=== PATIENT | female | born 1980 | race Two or more races ===

== ENCOUNTER → 2021-04-22 | Emergency (ER) | payer OTHER ==
[~2021-04-22] VITALS: Ht 160 cm; Wt 136.1 kg
[~2021-04-22] MED LIST: ATORVASTATIN CA20 MG PO; CLONAZEPAM1 MG PO; LASIX20 MG PO; OMEPRAZOLE MAGN20 MG PO; SINGULAIR10 MG PO; ZESTRIL20 MG PO; ZOLOFT100 MG PO
== END | disposition home or self-care (01) ==
LOC: ER 13:36 → EDBD 13:36 → ER 15:34
DX: M54.5 Low back pain (principal); Z03.818 Encounter for observation for suspected exposure to other biological agents ruled out